=== PATIENT | male | born 1970 | race Hispanic/Latino ===

== ENCOUNTER 2016-09-22 20:15 | Emergency (ER) | payer OTHER ==
[~2016-09-22] VITALS: Ht 177.8 cm; Wt 87.3 kg
[~2016-09-22 20:15] MED LIST: FLOMAX0.4 MG PO; JANUMET 50/11 TABLET PO; MOTRIN600 MG PO; PERCOCET 5/31 TABLET PO; SIMVASTATIN20 MG PO; ZOFRAN ODT4 MG PO; ZOFRAN4 MG PO
[2016-09-22] MEDS ORDERED: ZITHROMAX Z-PA250 MG PO (22:10)
[2016-09-22] MEDS ORDERED: TESSALON PERLE100 MG PO (22:10)
[2016-09-22 22:22] VITALS: BP 105/71
== END 2016-09-22 22:24 | disposition home or self-care (01) ==
LOC: EME 20:15
DX: J40 Bronchitis, not specified as acute or chronic (principal); J45.909 Unspecified asthma, uncomplicated; F17.200 Nicotine dependence, unspecified, uncomplicated
CPT/HCPCS: 71020; 94640; 99281; 99284; J1100